=== PATIENT | female | born 1960 | race Caucasian/White ===

== ENCOUNTER 2018-10-06 12:03 | Emergency (ER) | payer MEDICAID ==
[~2018-10-06] VITALS: Ht 162.6 cm; Wt 81.9 kg
[~2018-10-06 12:03] MED LIST: DICL100G37 TOP; TRAM50TA2 PO
[2018-10-06 12:18] VITALS: Ht 162.6 cm; Wt 81.9 kg
--- NOTE | 2018-10-06 14:31 | ERD ---
ER Documentation Chief Complaint Chief Complaint bilateral leg pain/injury HPI 58-year-old female presenting with bilateral knee pain for the last month. Patient is unsure if she has arthritis. Denies any falls or injuries. Took ibuprofen with no alleviation. Pain is worse with ambulation. Denies medical problems. NKDA. Surgical history . Social history denies ROS All systems reviewed and are negative except as per history of present illness. Medications Home Meds Active Scripts Diclofenac Sodium* (Voltaren* Gel) 1% -100 Gm Gel, 2 GM TOP QID, #1 TUB Prov:JAIRO BEY PA-C 10/06/18 Tramadol HCl (Tramadol HCl) 50 Mg Tablet, 50 MG PO Q4 PRN for PAIN, #20 TAB Prov:JAIRO BEY PA-C 10/06/18 FmHx Family History: No diabetes, No coronary disease, No other Physical Exam Vitals Vital Signs Date Temp Pulse Resp B/P (MAP) Pulse Ox O2 O2 Flow FiO2 Time Delivery Rate 10/06/18 98.8 78 20 137/73 100 12:18 (94) Physical Exam GENERAL: The patient is well-appearing, well-nourished, in no acute distress CHEST: Clear to auscultation bilaterally. There are no rales, wheezes or rhonchi. HEART: Regular rate and rhythm. No murmurs, clicks, rubs or gallops. EXTREMITIES: Equal pulses bilaterally. There is no peripheral clubbing, cyanosis or edema. No focal swelling or erythema. Full range of motion. Grossly neurovascularly intact. NEUROLOGIC: Alert and oriented. Cranial nerves II through XII intact. Motor strength in all 4 extremities with 5 out of 5 strength. Sensation grossly intact. Normal speech and gait. SKIN: There is no apparent rash or petechiae. The skin is warm and dry. Procedures/MDM DIAGNOSTIC IMAGING REPORT Patient: ECTOR MYRICK : 1960 Age: 58 Sex: F MR #: [id number] DOS: 10/06/18 1254 Ordering MD: SARITA BEY PA-C Location: [facility] Room/Bed: PROCEDURE: XR Knee. CLINICAL INDICATION: Pain TECHNIQUE: AP, lateral and oblique view of the bilateral knee were obtained. The images reviewed on a PACS workstation. COMPARISON: None. FINDINGS: No acute fracture or dislocation. 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 No suprapatellar joint effusion. 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 MDM: 50-year-old female presenting with bilateral knee pain. Patient has findings consistent with arthritis on x-ray. I have low suspicion for acute fracture dislocation. I have low suspicion for septic joint. I have low suspicion for tendon or ligament rupture. Patient is discharged with strict ER precautions and told to follow-up with primary care within 1 to 2 days for close evaluation. Patient is told symptoms change or worsen to return immediately to the ER. All questions answered at discharge Departure Diagnosis: Primary Impression: Arthritis Condition: Stable Patient Instructions: Osteoarthritis Referrals: [place] [facility] Hours: Thu-Thu 9:00 AM - 5:00 PM Additional Instructions: FOLLOW UP WITH YOUR PRIMARY CARE PHYSICIAN TOMORROW.Return to this facility if you are not improving as expected. JAIRO BEY PA-C Oct 06, 2018 14:31
[2018-10-06 14:38] VITALS: BP 129/75; PULSE 70; RESP 20
== END 2018-10-06 14:36 | disposition home or self-care (01) ==
LOC: FTE 12:03
DX: M19.90 Unspecified osteoarthritis, unspecified site (principal)
CPT/HCPCS: 73562; Z7502